=== PATIENT | female | born 1990 | race Caucasian/White ===

== ENCOUNTER 2025-07-09 08:49 | Outpatient (AMB) | payer OTHER, SELFPAY ==
--- NOTE | 2025-07-09 08:53 | HO.SPINEOV ---
Vital Signs 07/09/25 09:01 Height 5 ft 8 in Weight 140 lb BMI 21.3 Intake Visit Reasons: bulging of cervical intervertebral Intake Note: Ms. Santizo is here today c/o neck pain. Public Health Sanitarian Technician Required: No Allergies No Known Allergies Allergy (Verified 07/09/25 09:01) Physical Exam Vital Signs: BMI result Body Mass Index 21.3 Assessment & Plan Assessment & Plan (1) Cervical radiculopathy: Code(s): M54.12 - Radiculopathy, cervical region Category: Medical Plan Dear Komal, Thank you for referring Ms Santizo to our office today. She is a very nice 35-year-old female presents to the office today for evaluation of a cervical disc problem that started maybe 2 years ago. At that time she was noticing pain in the back of her neck as well as pain along her left shoulder. Does also pain in her subscapular region as well. Sometime in March of this year she is getting a massage and the symptoms acted up. She felt a burning pain down her arm as well as some tingling in her index finger. The escalation of pain and the burning feeling subsided somewhat, but she has been actively involved in physical therapy now for quite some time and the symptoms just do not seem to want to go away. Ultimately her physical therapist recommended she get an MRI and this showed foraminal narrowing at C6-7 on the left. She has been on ibuprofen, cyclobenzaprine, CBD lotion as well. She has been trying to do activity modifications at work but she does a lot of lifting and that will often aggravate the symptoms at the end of the day. She came in to see if there is anything that could be done from an intervention standpoint as she has tried most of the other conservative treatments. PMH: She is otherwise healthy and has no major systemic disease to report Social hx: She does not smoke, just occasionally uses marijuana or alcohol Medications: Cyclobenzaprine, ibuprofen, turmeric, fish oil, magnesium, multivitamin Allergies: None Physical exam: Awake alert oriented no acute distress, she has good strength in the upper extremities with the exception of the left triceps is slightly weak I would rate this as 4/5. Absent reflexes in the left triceps as well. Rest of the reflexes are normal. Imaging review: Cervical MRI done at [facility] in May of this year as well as x-rays shows some reversal of the normal lordotic curvature of the cervical spine, with what looks like disc herniation on the left C6-7 into the foramen. It is causing severe foraminal narrowing. Impression: 35-year-old female who has had on and off neck pain going into her shoulder and subscapular area now for 2 years who had a significant increase in the pain after a massage in March. The intensity of those symptoms went away, but she is still left with a baseline chronic pain and discomfort that she was experiencing before that. She clearly has severe foraminal narrowing at C6-7 on the left which would explain radicular symptoms down the arm and pain into the subscapular area as well as neck pain. It has been 2 years now and she is very frustrated with her quality of life. She has tried all the usual conservative treatments. The only other thing she could try would be a cortisone shot but I do not think that is going to do much long term care administrator other than just cover up the symptoms. Overall the quality of her disc and the height is relatively good. I think she would be a good candidate for artificial disc given her age. I am going to review this with Dr. Ferrell, to see if he agrees with me. The alternate option would be anterior cervical fusion but again because she is young I think he would lean in the direction of an artificial disc. We did briefly discuss that procedure, risks, benefits, quoting success rate at 90%. We also discussed recovery as well. Once I have a chance to finalize a plan with Dr. Ferrell I will get back to the patient. Thank you for allowing us to care for your patient. The total time spent with this visit with this patient was 45 minutes reviewing history, physical exam, cervical imaging review, and implementation of treatment plan or further diagnostic testing Logan Ferrell MD,PhD [facility] Coding Level of Care Code New Pt Level 4 (51046) Diagnoses Cervical radiculopathy M54.12
[2025-07-09 09:01] VITALS: BMI 21.3
--- OUTSIDE RECORDS SUMMARY | 2025-07-09 09:48 | XMS_ITS | Encounter Summary ---
Author Organization [facility] Address [address] [place] [phone] Phone Care Team Providers Care Chemical Processing Equipment Repairer Name Role Phone Komal Peterson CNP Primary Care Provid er Encounter Details Date Type Department Care Team (Late st Contact Info) Description 05/28/2025 Procedure Pass [facility], [facility] [address] [place], [place] [id number] Social History Tobacco Use Types Packs/Day Years Used Date Smoking Tobacco: Never Passive Smoke Exposure: Current Smokeless Tobacco: Never Passive Exposure Comments:pa rtner smokes Alcohol Use Standard Drinks/Week Comments Yes 1 (1 standard drink = 0.6 oz pure alcohol) Rare alcohol, 1-2 drinks 1-2x/month. Child or Family Care Answer Date Record ed Do you have problems with on e of the following making it difficult for you to work, study, or receive health care? No 02/27/2025 Education Answer Date Recorded Are you interested in help w ith more adult education (for example, completing high school, GED, job training, learning the [place] language, technical skills, or developing parenting skills)? No 02/27/2025 Are you concerned about learning? Not on file 02/27/2025 No 02/27/2025 Yes 02/27/2025 Food Answer Date Recorded Within the past 6 months we worried whether our food would run out before we got money to buy more. Sometimes True 025 Within the past 6 months the food we bought just didn't last and we didn't have enough money to get more. Never True 02/17 Residential Stability Answer Date Recor ded What is your housing situation today? I have tony joe 02/27/2025 How many times have you move d in the past 12 months? Zero (I did not move) 02/27/2025 Paying for Meds Answer Date Recorded Do you have trouble paying for medicines? No 02/27/2025 Paying Utility Bills Answer Date Record ed Do you have trouble paying your heating or elect ricity bill? No 02/27/2025 Transportation Answer Date Recorded Has the lack of transportati on kept you from medical appointments or from getting medications? No 02/27/2025 Unemployment Answer Date Recorded Are you currently unemployed or working on a part-time or temporary basis, and looking for work? No 02/27/2025 Digital Access Answer Date Recorded No 02/27/2025 Yes 02/27/2025 Do you have reliable internet access at home? Ye s 02/27/2025 Do you have a device (e.g., phone, tablet, computer) with a working camera? Yes 02/27/2025 Intimate Partner Violence Answer Date R ecorded Denied Basic Needs Not on file 02/27/2025 In the past 12 months have y ou been in a relationship with a person who hurts, threatens, or tries to control you? No 02/27/2025 Worried food would run out Not on file 02/27 In the past 12 months have y ou been in a relationship with a person who hurts, threatens, or tries to control you? No 02/27/2025 Comments No Sex and Gender Information Value Date Recorded Sex Assigned at Female 09/25/2024 12:44 PM EST Legal Sex Female 8:04 AM EDT Gender Identity Female 09/25/2024 12:44 PM EST Sexual Orientation Choose not to disclose 2023 12:44 PM EST documented as of this encounter Plan of Treatment Upcoming Encounters Date Type Department Care Team (Late st Contact Info) Description 03/12/2026 8:00 AM EDT Office Visit [facility] [address] [place] [address] [place] [address] Komal Peterson, MARIO [address] [facility], [address] [place] [phone] [email or web address] documented as of this encounter Visit Diagnoses Not on filedocumented in this encounter Additional Health Concerns Assessment Noted Time PHQ-2 Depression Total Score: 1 02/28/20 25 5:26 PM EDT documented as of this encounter Care Teams Chemical Processing Equipment Repairer Relationship Specialty Start Date End Date Komal Peterson CNP [address] [place] [address], [address] [place] [phone] [email or web address] PCP - General Family Medicine 02/18/24 documented as of this encounter Additional Source Comments The information contained in this document represents components of the legal health record. It is not the complete legal health record.[facility]
--- OUTSIDE RECORDS SUMMARY | 2025-07-09 09:48 | XMS_ITS | Encounter Summary ---
Author Organization [employer] Address [address] [facility] [address] [facility] [address] [place] [address] Care Team Providers Care It Trainer Name Role Phone Provider, Not In System Primary Care Provider Un available Encounter Details Date Type Department Care Team (Latest Contact Info) Description 05/24/2021 Abstract [facility] CONVERSIONS Dental, Provider, DDS Social History Tobacco Use Types Packs/Day Years Used Date Smoking Tobacco: Never Assessed Comments Unknown Sex and Gender Information Value Date Recorded Sex Assigned at Female 12/22/2022 12:22 PM EST Legal Sex Female 8:39 PM EST Gender Identity Female 09/29/2022 8:39 PM EST Sexual Orientation Bisexual 09/29/2022 8: 39 PM EST documented as of this encounter Plan of Treatment Not on file documented as of this encounter Visit Diagnoses Not on filedocumented in this encounter Care Teams It Trainer Relationship Specialty Start Date End Date Provider, Not In System PCP - General Family Medicine 02/29/24 documented as of this encounter
== END 2025-07-09 09:39 | disposition home or self-care (01) ==
PROVIDERS: PCP Nurse Practitioner Family; Referring Provider Nurse Practitioner Family; Visit Provider Physician Assistant
DX: M54.12 Radiculopathy, cervical region (principal)
CPT/HCPCS: 99204

== ENCOUNTER → 2025-07-09 08:49 | Outpatient (BNVA) | payer OTHER, SELFPAY | PROVIDERS: PCP Nurse Practitioner Family; Referring Provider Nurse Practitioner Family; Visit Provider Physician Assistant | DX: M54.12 Radiculopathy, cervical region (principal) | CPT/HCPCS: 99202 ==

== ENCOUNTER 2025-08-12 14:42 | Outpatient (AMB) | payer OTHER, SELFPAY ==
--- NOTE | 2025-08-12 15:15 | A.SPINEOV_ITS ---
Intake Visit Reasons: Discuss surgery Intake Note: Ms. Santizo is here today to Discuss Surgery Director Of Hospitality Required: No Allergies No Known Allergies Allergy (Verified 07/09/25 09:01) Assessment & Plan Assessment & Plan (1) Cervical radiculopathy: Code(s): M54.12 - Radiculopathy, cervical region Category: Medical Plan On 08/12/2025, I saw for preoperative visit Robles Santizo. She is scheduled to undergo a total disc arthropathy C6-7 for left cervical radiculopathy. We went over the films and discuss the procedure, expected postoperative course and answered all relevant questions to the patient. A total of 25 minutes were spent in his consult. Klever Ferrell MD, PhD Spine Fellowship Trained Neurosurgeon Director, [facility] Coding Level of Care Code Est Pt Level 3 (89774) Diagnoses Cervical radiculopathy M54.12
--- OUTSIDE RECORDS SUMMARY | 2025-08-12 17:17 | XMS_ITS | Encounter Summary ---
Author Organization [facility] Address [address] [place] [phone] Phone Care Team Providers Care Inventory Transcriber Name Role Phone DavidjeredKomal CNP Primary Care Provid er Encounter Details Date Type Department Care Team (Late st Contact Info) Description 05/28/2025 Procedure Pass [facility] [address] [place], [place] [phone] Social History Tobacco Use Types Packs/Day Years [...] high school, GED, job training, learning the Mauritanian language, technical skills, or developing parenting skills)? [...] EDT Office Visit [facility] [address] [place] [address] [place] [address] Komal Peterson, MARIO [address] [facility], 2nd Floor [place] [phone] [email or web address] documented as of this encounter Visit Diagnoses Not on filedocumented in this encounter Additional Health Concerns Assessment Noted Time PHQ-2 Depression Total Score: 1 02/28/20 25 5:26 PM EDT documented as of this encounter Care Teams Inventory Transcriber Relationship Specialty Start Date End Date Komal Peterson CNP [address] [place] [address], 2nd Floor [place] [phone] [email or web address] PCP - General Family Medicine 02/18/24 documented as of this encounter Additional Source Comments The information contained in this document represents components of the legal health record. It is not the complete legal health record.[facility]
--- OUTSIDE RECORDS SUMMARY | 2025-08-12 17:17 | XMS_ITS | Encounter Summary ---
Author Organization [employer] Address [address] [facility] 7t [place] [address] Care Team Providers Care Powder Operator Name Role Phone Provider, Not In System [...] on filedocumented in this encounter Care Teams Powder Operator Relationship Specialty Start Date End Date Provider, Not In System PCP - General Family Medicine 02/29/24 documented as of this encounter
--- OUTSIDE RECORDS SUMMARY | 2025-08-12 17:17 | XMS_ITS | Clinical Summary ---
Author Organization [address] [facility] Address [address] [place] [address] Phone Care Team Providers Care Range Rider Name Role Phone Komal Peterson BRADLY Primary [...] Care Team (Late st Contact Info) Description 08/14/2025 10:00 AM EDT Consult Neurosurgery [facility] [address] [facility] [address] [place] [address] Fatoumata Galvez MD [address] [place] [address] Health Maintenance Due Date Last Done Comments Cervical Cancer Screening: Pap Smear 2012 Depression Screening 11/19/2024 COVID-19 Vaccine ( season) 2025 HIV Screening 07/24/2025 Hepatitis C Screening 07/24/2025 Social Influencers of Health Screening 07/24/2025 DTaP,Tdap,and Td Vaccines (9 - Td or Tdap) 03/06/2035 03/06/2025, 07/17/2008, 07/03/2003, Additional history exists RSV Immunization Adult Patients (1 - 1-dose 75+ series) 2066 HIB Vaccines Completed 10/05/1992, 0 04/1992, 1991 IPV Vaccines Completed 08/21/1995, 0 06/1993, 1991, Additional history exists Hepatitis B Vaccines Completed 01/06/2003, 08/06/2002, 2002 Meningococcal ACWY Vaccine Completed 07/09/2007 MMR Vaccines Completed 10/05/2007, 07/08/1996 HPV Vaccines Completed 07/07/2010, 10/21, 06/17/2009 Influenza Vaccine Completed 07/24/2025, 03/06/2025 Hepatitis A Vaccines Aged Out No long er eligible based on patient's age to complete this topic Meningococcal B Vaccine Aged Out No l onger eligible based on patient's age to complete this topic Pneumococcal Vaccine: Pediatrics (0 to 5 Years) and At-Risk Patients (6 to 49 Years) Aged Out No longer eligible based on patient's age to complete this topic RSV Immunization Patients Under 20 months Aged Out No longer eligible based on patient's age to complete this topic Varicella Vaccines Aged Out No longer eligible based on patient's age to complete this topic Insurance [facility] [employer] Care Teams Range Rider Relationship Specialty Start Date End Date Komal Peterson NP [address] [place] [address], 2nd [place] [address] PCP - General Family Medicine 07/24/25
--- OUTSIDE RECORDS SUMMARY | 2025-08-12 17:17 | XMS_ITS | Encounter Summary ---
Author Organization [employer] Address [address] [facility] 7t [place] [address] Care Team Providers Care At Home Independent Call Center Agent Name Role Phone Provider, Not In System [...] on filedocumented in this encounter Care Teams At Home Independent Call Center Agent Relationship Specialty Start Date End Date Provider, Not In System PCP - General Family Medicine 02/29/24 documented as of this encounter
--- OUTSIDE RECORDS SUMMARY | 2025-08-12 17:17 | XMS_ITS | Clinical Summary ---
Author Organization [employer] Address [address] [facility] 7t [place] [address] Care Team Providers Care Grab Operator Name Role Phone Provider, Not In [...] RESULT 4TH GEN HIV AB-AG NEGATIVE (NEG) [facility] 06/28/2020 3:02 PM EDT us Historical Provider HISTORICAL/NON ORDERABLE LABS Final Result [facility] [address] from Last 3 Months or Most Recently Relevant to Health Maintenance Insurance [facility] MEDICAID STAND ADULT DENTAL - HSN FULL (MEDICAID) Care Teams Grab Operator Relationship Specialty Start Date End Date Provider, Not In System PCP - General Family Medicine 02/29/24
--- OUTSIDE RECORDS SUMMARY | 2025-08-12 17:17 | XMS_ITS | Clinical Summary ---
Author Organization [facility] Address [address] [facility] [address] [place] [phone] Phone Care Team Providers Care Kettle Room Helper Name Role Phone Komal Peterson CNP Primary [...] flow, a break, and then resumption of etl database developer flow. - Some irregularity is to be [...] if she needs a referral for a durable medical equipment technician/box printer. Bilateral shoulder pain 09/02/2022 Overview (02/18/2024): Started [...] Description 07/24/2025 1:30 PM EDT Office Visit [facility] [address] [place] [address] [place] [address] Komal Peterson CNP Preoperative cardiovascular examination (Primary Dx); Degenerative disc disease, cervical; Cervical radiculopathy; Encounter for immunization 06/16/2025 6:55 AM EDT - 06/16/2025 11:59 PM EDT Hospital Encounter [address] [address] Komal Peterson CNP Discharge Disposition: Home or Self Care 05/28/2025 Procedure Pass [address] [address] from Last 3 Months Immunizations Immunization Administration [...] high school, GED, job training, learning the [place] language, technical skills, or developing parenting skills)? [...] EDT Office Visit [facility] [address] [place] [address] [place] [address] Komal Peterson, MARIO [address] [facility], 2nd Floor [place] [phone] [email or web address] Health Maintenance Due Date [...] clinician's provided indication for this examination in [facility]: * Cervical radiculopathy, no red flags; * [...] clinician's provided indication for this examination in [facility]: *Cervical radiculopathy, no red flags; * Neck [...] on theleft C7 nerve root. Komal Peterson BUYING AGENT IMG MR XSPECIALTY Fi nal Result * PAP SMEAR FOR RESULT ENTRY ONLY (01/30/2025 9:42 AM EDT) Pap smear NILM and HPV neg EXTERNAL NON-INTERFACE D REF LAB 01/30/2025 9:42 AM EDT Result [facility] Historical Provider MD HEALTH MAINTENANCE Edited Result - Final EXTERNAL NON-INTERFACED REF LAB * OUTSIDE HIV TEST (05/06/2021 10:10 AM EDT) HIV - External Neg Result [facility] Historical Provider MD LAB BLOOD ORDERABLES Marycarmen l Result * Outside Hepatitis C Virus Screening (06/28/2020 3:01 PM EDT) Hepatitis C Screening - External Neg Historical Provider MD LAB BLOOD ORDERABLES Marycarmen l Result from Last 3 Months or Most Recently Relevant to Health Maintenance [facility] [address] [place] [address] [employer] [address] [place] [address] [address] [place] [address] [facility] DIRECT [facility] DIRECT [facility] [employer] DIRECT Care Teams Kettle Room Helper Relationship Specialty Start Date End Date Komal Peterson, MARIO [address] [place] [address], 2nd [place] [address] [email or web address] PCP - General Family Medicine 02/18/24 Additional Source Comments The information contained in this document represents components of the legal health record. It is not the complete legal health record.[facility]
== END 2025-08-12 15:46 | disposition home or self-care (01) ==
LOC: HO.HNS 14:42
PROVIDERS: PCP Nurse Practitioner Family; Visit Provider Neurological Surgery
DX: M54.12 Radiculopathy, cervical region (principal)
CPT/HCPCS: 99213

== ENCOUNTER → 2025-08-12 14:42 | Outpatient (BNVA) | payer OTHER, SELFPAY | PROVIDERS: PCP Nurse Practitioner Family; Visit Provider Neurological Surgery | DX: M54.12 Radiculopathy, cervical region (principal) | CPT/HCPCS: 99212 ==

== ENCOUNTER 2025-08-19 06:01 | Day surgery (SDC) | payer OTHER, SELFPAY ==
[2025-08-07 09:22] VITALS: BMI 22.0
--- OUTSIDE RECORDS SUMMARY | 2025-08-07 10:47 | XMS_ITS | Clinical Summary ---
Author Organization [facility] Address [address] [employer] [facility] [address] [place] [phone] Phone Care Team Providers Care Production Technician Name Role Phone Komal Peterson CNP Primary Care Provid er Allergies No known active allergies Medications cholecalciferol (VITAMIN D3) 2,000 unit tablet Take 2,000 Units by mouth daily. Active MULTIVITAMIN ORAL Take 1 tablet by mouth daily. Active tretinoin (RETIN-A) 0.1 % creamIndication s:Milia Apply topically nightly at bedtime. 45 g 4 Active cyclobenzaprine (FLEXERIL) 5 MG tabletIndicatio ns:Muscle spasms of neck Take 1 tablet (5 mg total) by mouth 3 (three) times a day as needed (for muscle spasm/tightnes s). 15 tablet 2 5 Active Active Problems Problem Noted Date Diagnosed Date Dysmenorrhea 07/24/2025 Degenerative disc disease, cervical 04/10/2025 Ganglion cyst of left foot 03/06/2025 Assessment & Plan (03/06/2025 6:16 PM EDT): The cyst on the side of the dorsal left foot is mobile under the skin and behaves like a typical ganglion cyst. - Advised to wear open-toed shoes on off days to reduce pressure and use a corn pad for cushioning if bothersome. - If the cyst persists, enlarges, or exhibits unusual behavior, an x-ray or soft tissue ultrasound can be performed to assess its contents. A surgical or orthopedic referral may also be considered for possible cyst aspiration or excision. Seborrheic dermatitis of scalp 03/06/2025 Assessment & Plan (03/06/2025 6:10 PM EDT): The patient reports dry skin around her ears and on her scalp, which is likely seborrheic dermatitis. - Continue Head and Shoulders shampoo on her scalp and ears as needed. Muscle spasms of neck 03/06/2025 Assessment & Plan (03/06/2025 6:11 PM EDT): The patient experiences chronic neck and shoulder pain, which sometimes interrupts sleep. - A prescription for cyclobenzaprine (Flexeril) will be provided for use as needed for muscle spasm tightness. Risks/benefits/side effects reviewed, aware not to drive or combine with alcohol. Menstrual irregularity 03/06/2025 Assessment & Plan (03/06/2025 6:15 PM EDT): The patient recently had her IUD removed and experienced her first period in 5 years, characterized by an initial heavy flow, a break, and then resumption of decator operator flow. - Some irregularity is to be expected over the coming months and is likely to become more predictable. - Advised to continue using condoms for control and to track her cycle for better understanding of her fertility window. Cyst near tailbone 03/06/2025 Assessment & Plan (03/06/2025 6:16 PM EDT): The patient has a history of a (?pilonidal) cyst that flares up occasionally. - Advised to monitor the cyst and manage flare-ups with hot soaks. - If the cyst becomes infected or inflamed, treatment should be sought, and once inflammation subsides, consult a surgeon for potential removal. Vitamin D deficiency 02/18/2024 Assessment & Plan (03/06/2025 6:14 PM EDT): The patient is concerned about potential vitamin D deficiency due to inconsistent supplement intake and limited sun exposure. - Blood work will be ordered to assess vitamin D levels. Assessment & Plan (02/18/2024 8:13 AM EDT): Takes a vitamin d supplement seasonally. Cervical radiculopathy 02/18/2024 Assessment & Plan (02/18/2024 9:38 AM EDT): Neck and upper back/shoulder pain with occasional shooting pain down her arms occurring around every few weeks to once/month. Usually manages with IcyHot patch, rest and ice. No numbness or tingling. Will obtain c-spine x-ray to establish baseline and assess disc spacing. PT referral also sent today. Dicussed next steps if sx worsening or not improving with PT including sports medicine referral (PSS). Red flags discussed. F/u PRN. Non-celiac gluten sensitivity 02/18/2024 Assessment & Plan (03/06/2025 6:19 PM EDT): Previous testing neg for celiac, records not available. Low overall risk for malabsorption but she is interested in investigating her nutritional status, will check B12 and CBC. Assessment & Plan (02/18/2024 9:32 AM EDT): Has noticed a sensitivity to gluten, has considered going gluten free. Believes she has been tested for Celiac, declined repeat testing today. 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 Bilateral shoulder pain 09/02/2022 Overview (02/18/2024): Started with a muscle injury while moving. I have had recurring pinched shoulder and neck nerves since (every other month it seems). 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 Looking to set up a physical or occupational therapist in the area. Assessment & Plan (03/06/2025 6:13 PM EDT): Chronic/recurrent neck and shoulder pain, better with reducing her workload but continues with a very physical job. - Participated in physical therapy last year with benefit, continues with HEP. - She has also tried acupuncture and massage in the past re: this issue. - Flares managed with OTC pain relief and heat or ice packs. Assessment & Plan (02/18/2024 9:28 AM EDT): Strained muscles in the middle of her back and neck, radiates down her back and into either shoulder. She is really overworking her upper back. Has been stretching and taking OTC pain meds, applying ice packs. Has gotten some acupuncture and massage. Interested in working with physical therapy. Neck and shoulders very stiff on exam. Referral sent for PT. History of iron deficiency anemia 10/16/2018 Assessment & Plan (03/06/2025 6:17 PM EDT): Hx of iron deficiency also with history of heavy periods. Recently had IUD removed, has only had one cycle so far but it was heavier for a few days. - Monitor for anemia/iron deficiency recurrence. Assessment & Plan (02/18/2024 9:28 AM EDT): Hx of iron deficiency also with history of heavy periods, now in good control with hormonal IUD. Declined updated labs today. Resolved Problems Problem Noted Date Diagnosed Date Resolved Date IUD (intrauterine device) in place 02/18/2024 03/06/2025 Assessment & Plan (02/18/2024 9:21 AM EDT): Karla IUD in place, inserted a few years ago through [facility]. Content with this method of contraception. Will request records. Marijuana user 02/18/2024 03/06/2025 Assessment & Plan (02/18/2024 9:33 AM EDT): Occasionally smokes MJ or takes edibles ~1-2x/week. Use is recreational and also helps with sleep or relaxation. Denies any experience of dependence or withdrawal. Confirms she uses the dispensaries/always obtains her supply from a safe place. Does not feel this causes her any problems. Chest wall pain 02/18/2024 03/06/2025 Assessment & Plan (02/18/2024 9:32 AM EDT): Tenderness below both arms and in the upper chest, worse on the right. Likely also related to frequent heavy lifting, upper back, neck and shoulder pain. No breast tenderness on exam. Functional constipation 02/18/202402/17 Assessment & Plan (02/18/2024 9:34 AM EDT): Feeling a little constipated at present, didn't have a BM yesterday. Reports this happens occasionally. Does take OTC stool softeners/laxatives as needed. Recommended senna as needed. Also discussed the importance of good hydration and consistent fiber intake. Milia 02/01/2024 03/06/2025 Overview (02/18/2024): Appearance of white dot under white eye over the last few weeks. Could be a minor fungal growth. Assessment & Plan (02/18/2024 9:26 AM EDT): New onset white dot below the right eye c/w milia. Discussed benign finding. May be self-limiting, could also be removed through dermatology. Since this is fairly isolated, may also respond to topical retinoid, suggested OTC Differin or Retin- A, rx sent to explore insurance coverage. Risks/benefits/side effects reviewed including sun sensitivity. F/u PRN. Rash of hand 01/18/2024 03/06/2025 Overview (02/18/2024): Had for a few weeks on my right hand from repeated dish washing. Open to treatment suggestions. Assessment & Plan (02/18/2024 9:24 AM EDT): Right hand rash between thumb and first finger, pt reports often also affecting the knuckles. Worse with hands in water. Improved with regular OTC non-medicated moisturizer use. No known hx of eczema. Hasn't tried hydrocortisone. Likely contact dermatitis related to hot water and soap, eczema also possible. Should avoid potential triggers such as: cold or dry environments, rapid temperature changes, exposure to soaps/detergents/cosmetics/wool or synthetic fibers, dust or smoke, and sweating. Recommended wearing gloves if possible while washing dishes. She will continue regular use of non-medicated emollients (such as Eucerin or Cetaphil) and/or ointments (such as Aquaphor or Vaseline). Recommend use of OTC Hydrocortisone 1% as needed for flares. Should follow-up if ineffective/ no improvement after 2 weeks. Encounters Date Type Department Care Team Description 07/24/2025 1:30 PM EDT Office Visit [facility] [address] [place] [address] [place] [address] Komal Peterson CNP Preoperative cardiovascular examination (Primary Dx); Degenerative disc disease, cervical; Cervical radiculopathy; Encounter for immunization 06/16/2025 6:55 AM EDT - 06/16/2025 11:59 PM EDT Hospital Encounter [address] [address] Komal Peterson CNP Discharge Disposition: Home or Self Care 05/28/2025 Procedure Pass [address] [id number] from Last 3 Months Immunizations Immunization Administration Dates Next Due DTP 08/21/1995, 3,1991,10/23,1991 HPV, unspecified formulation 07/07/2010,11/17/20 09,06/17/2009 Hepatitis B, unspecified formulation 01/06/2003, 08/06/2002,2002 Hib, unspecified formulation 10/05/1992,12/25/18 92,1991 INFLUENZA, SPLIT VIRUS, TRIVALENT PF 07/24/2025, 03/06/2025 MMR 10/05/2007,07/08/1996 Meningococcal ACWY, unspecif ied formulation 07/09/2007 PPD Test 03/29/1992 Polio, Unspecified Formulation 5,12/27/1992,1991,09/08 Td, unspecified formulation 07/03/2003 Tdap 03/06/2025,07/17/2008 Family History Medical History Relation Comments Hypertension Father Heart disease Paternal Grandmother Breast cancer Neg Hx Colon cancer Neg Hx Ovarian cancer Neg Hx Relation Status Comments Father Maternal Grandfather Paternal Grandmother Social History Tobacco Use Types Packs/Day Years Used Date Smoking Tobacco: Never Passive Smoke Exposure: Current Smokeless Tobacco: Never Tobacco Cessation:Counseling Given: Not Answered Passive Exposure Comments:partner smokes Alcohol Use Standard Drinks/Week Comments Yes [...] high school, GED, job training, learning the German language, technical skills, or developing parenting skills)? [...] not to disclose 2023 12:44 PM EST Last Filed Vital Signs Vital Sign Reading Time Taken Comments Blood Pressure 102/66 07/24/2025 1:34 PM EDT Pulse 77 07/24/2025 1:34 PM EDT Temperature 36.8 C (98.2 F) 02/18/2024 7:57 AM EDT Respiratory Rate - - Oxygen Saturation 98% 07/24/2025 1:34 PM EDT Inhaled Oxygen Concentration - - Weight 68.2 kg (150 lb 6.4 oz) 07/24/2025 1:34 P M EDT Height 170.2 cm (5' 7 ) 06/11/2025 3:54 PM EDT 3 Body Mass Index 23.56 06/11/2025 3:54 PM EDT Plan of Treatment Upcoming Encounters Date Type Department Care Team (Late st Contact Info) Description 03/12/2026 8:00 AM EDT Office Visit [facility] [address] [place] [address] [place] [address] Komal Peterson, MARIO [address] [facility], [address]nd [address] [place] [id number] [email or web address] Health Maintenance Due Date Last Done Comments COVID-19 VACCINE (2023-2 5 season) 2025 DEPRESSION SCREENING 02/27/2026 02/27/2025 PAP SMEAR 01/31/2028 01/30/2025, 08/16/2020 Adult Td,Tdap Booster 03/06/2035 03/06/2025 , 07/17/2008, 07/03/2003 HIB VACCINES Completed 10/05/1992, 1991, 1991 MENINGOCOCCAL VACCINES (ACWY) Completed 07/09/2007 HEPATITIS C SCREENING Completed 06/28/2020 HIV ONE-TIME SCREENING (18-6 5 YEARS) Completed 05/06/2021, 06/28/2020 SMOKING STATUS SCREENING (On ce After 26 Yrs) Completed 03/06/2025 INFLUENZA VACCINE Completed 07/24/2025, 03/06/2025 HEPATITIS A VACCINES Aged Out No long er eligible based on patient's age to complete this topic MENINGOCOCCAL VACCINES (B) Aged Out N o longer eligible based on patient's age to complete this topic PNEUMOCOCCAL VACCINES (0-49 years) Aged Out No longer eligible b ased on patient's age to complete this topic Medical Devices Not on file Procedures Procedure Name Priority Date/Time Associated Diagnosis Comments MRI CERVICAL SPINE (NEURO) FOCUS WITHOUT CONTRAST Urgent/patient waiting 06/16/2025 8:20 AM EDT Degenerative disc disease, cervical Cervical radiculopathy Neck and shoulder pain HM PAP SMEAR FOR RESULT ENTRY ONLY Routine 01/30/2025 9:42 AM EDT OUTSIDE HIV Routine 05/06/2021 10:10 AM EDT OUTSIDE HEPATITIS C VIRUS SCREENING Routine 06/28/2020 3:01 PM EDT from Last 3 Months or Most Recently Relevant to Health Maintenance Results * MRI CERVICAL SPINE (NEURO) FOCUS WITHOUT CONTRAST (06/16/2025 8:20 AM EDT) Anatomical Region Laterality Modality C-spine Magnetic Resonan ce 06/16/2025 8:22 AM EDT Impressions 06/16/2025 8:37 AM EDT Prominent left foraminal disc protrusion at C6-C7 likely impinges on the left C7 nerve root. Narrative 06/16/2025 8:37 AM EDT MRI CERVICAL SPINE (NEURO) FOCUS WITHOUT CONTRAST Referring clinician's provided indication for this examination in [facility]: * Cervical radiculopathy, no red flags; * Neck pain, chronic, degenerative changes on xray; Persistent radiating pain into the shoulders & left arm, persistent despite supportive measures and PT >3 months TECHNIQUE: MRI CERVICAL SPINE (NEURO) FOCUS WITHOUT CONTRAST Multi-sequence, multi-planar MRI of the cervical spine was performed without intravenous contrast. COMPARISON: None. FINDINGS: CERVICAL SPINE: Alignment and Vertebrae: Mild reversal of cervical lordosis. No compression fracture. Marrow: No bone marrow replacing lesion. Discs and Endplates: Normal intervertebral disc heights and signal. Spinal Cord: No spinal cord signal abnormality. Soft Tissue: Normal. No prevertebral edema. Findings by level: C2-C3: Negative C3-C4: Negative C4-C5: Negative C5-C6: Negative C6-C7: There is a prominent left foraminal disc protrusion (with mild underlying osteophytosis) resulting in severe foraminal stenosis and likely impingement of the left C7 nerve root. C7-T1: Negative Procedure Note Camilo Rascon MD - 06/16/2025 MRI CERVICAL SPINE (NEURO) FOCUS WITHOUT CONTRAST Referring clinician's provided indication for this examination in [facility]: *Cervical radiculopathy, no red flags; * Neck pain, chronic, degenerativechanges on xray; Persistent radiating pain into the shoulders & left arm,persistent despite supportive measures and PT >3 months TECHNIQUE: MRI CERVICAL SPINE (NEURO) FOCUS WITHOUT CONTRAST Multi-sequence, multi-planar MRI of the cervical spine was performedwithout intravenous contrast. COMPARISON: None. FINDINGS: CERVICAL SPINE: Alignment and Vertebrae: Mild reversal of cervical lordosis. Nocompression fracture. Marrow: No bone marrow replacing lesion. Discs and Endplates: Normal intervertebral disc heights and signal. Spinal Cord: No spinal cord signal abnormality. Soft Tissue: Normal. No prevertebral edema. Findings by level: C2-C3: Negative C3-C4: Negative C4-C5: Negative C5-C6: Negative C6-C7: There is a prominent left foraminal disc protrusion (with mildunderlying osteophytosis) resulting in severe foraminal stenosis andlikely impingement of the left C7 nerve root. C7-T1: Negative IMPRESSION: Prominent left foraminal disc protrusion at C6-C7 likely impinges on theleft C7 nerve root. Komal Peterson [employer] MR XSPECIALTY Fi nal Result * PAP SMEAR FOR RESULT ENTRY ONLY (01/30/2025 9:42 AM EDT) Pap smear NILM and HPV neg EXTERNAL NON-INTERFACE D REF LAB 01/30/2025 9:42 AM EDT Result [facility] Historical Provider MD HEALTH MAINTENANCE Edited Result - Final EXTERNAL NON-INTERFACED REF LAB * OUTSIDE HIV TEST (05/06/2021 10:10 AM EDT) HIV - External Neg Result [facility] Historical Provider MD LAB BLOOD ORDERABLES Marycarmen l Result * Outside Hepatitis C Virus Screening (06/28/2020 3:01 PM EDT) Hepatitis C Screening - External Neg Historical Provider MD LAB BLOOD ORDERABLES Marycarmen l Result from Last 3 Months or Most Recently Relevant to Health Maintenance [facility] [address] [place] [address] [employer] [address] [place] [address] [place] [address] [employer] [facility] DIRECT [facility] [employer] DIRECT Care Teams Production Technician Relationship Specialty Start Date End Date Komal Peterson, MARIO [address] [place] [address], [address] [place] [address] [email or web address] PCP - General Family Medicine 02/18/24 Additional Source Comments The information contained in this document represents components of the legal health record. It is not the complete legal health record.[facility]
--- OUTSIDE RECORDS SUMMARY | 2025-08-07 10:47 | XMS_ITS | Encounter Summary ---
Author Organization [facility] Address [address] [facility] [address] [place] [address] Care Team Providers Care Multicultural Internship Name Role Phone Provider, Not In System [...] on filedocumented in this encounter Care Teams Multicultural Internship Relationship Specialty Start Date End Date Provider, Not In System PCP - General Family Medicine 02/29/24 documented as of this encounter
--- OUTSIDE RECORDS SUMMARY | 2025-08-07 10:47 | XMS_ITS | Clinical Summary ---
Author Organization [address] [facility] Address [address] [place] [address] Phone Care Team Providers Care Volcanologist Name Role Phone Komal Peterson BRADLY Primary Care Provide r Social History Tobacco Use Types Packs/Day Years Used Date Smoking Tobacco: Never Assessed Comments Unknown Sex and Gender Information Value Date Recorded Sex Assigned at Not on file Legal Sex Female 4:16 PM EDT Gender Identity Not on file Sexual Orientation Not on file Plan of Treatment Upcoming Encounters Date Type Department Care Team ([facility] st Contact Info) Description 08/14/2025 10:00 AM EDT Consult Neurosurgery [facility] [address] [facility] [address] [place] [address] Fatoumata Galvez MD [address] [place], [place] [id number] Health Maintenance Due Date Last Done Comments DTaP,Tdap,and Td Vaccines (1 - Tdap) 2010 Hepatitis B Vaccines (1 of 3 - 19+ 3-dose series) 2010 Cervical Cancer Screening: P ap Smear 2012 Depression Screening 11/19/2024 COVID-19 Vaccine (1 - 2023-2 5 season) 2025 Influenza Vaccine (#1) 2025 HIV Screening 07/24/2025 Hepatitis C Screening 07/24/2025 Social Influencers of Health Screening 07/24/2025 RSV Immunization Adult Patie nts (1 - 1-dose 75+ series) 2066 HIB Vaccines Aged Out No longer eligi ble based on patient's age to complete this topic HPV Vaccines Aged Out No longer eligi ble based on patient's age to complete this topic Hepatitis A Vaccines Aged Out No long er eligible based on patient's age to complete this topic IPV Vaccines Aged Out No longer eligi ble based on patient's age to complete this topic MMR Vaccines Aged Out No longer eligi ble based on patient's age to complete this topic Meningococcal ACWY Vaccine Aged Out N o longer eligible based on patient's age to complete this topic Meningococcal B Vaccine Aged Out No l onger eligible based on patient's age to complete this topic Pneumococcal Vaccine: Pediat rics (0 to 5 Years) and At-Risk Patients (6 to 49 Years) Aged Out No longer eligible b ased on patient's age to complete this topic RSV Immunization Patients Un geovanni 20 months Aged Out No longer eligible b ased on patient's age to complete this topic Varicella Vaccines Aged Out No longer eligible based on patient's age to complete this topic [place] [place] [address] [employer] Care Teams Volcanologist Relationship Specialty Start Date End Date Komal Peterson NP [address] [place] [address], 2[address] [place] [address] PCP - General Family Medicine 07/24/25
--- OUTSIDE RECORDS SUMMARY | 2025-08-07 10:47 | XMS_ITS | Clinical Summary ---
Author Organization [employer] Address [address] [facility] 7t [place] [address] Care Team Providers Care Paid Search Manager Name Role Phone Provider, Not In System Primary Care Provider Un available Allergies No known active allergies Medications cholecalciferol (Vitamin D-3) 50 MCG (1999) tablet Take by mouth in the morning. Active UNABLE TO FIND Med Name: Activ e Active Problems Problem Noted Date Diagnosed Date Anemia 10/16/2018 Social History Tobacco Use Types Packs/Day Years Used Date Smoking Tobacco: Every Day Cigarettes Smokeless Tobacco: Never Tobacco Cessation:Ready to Q uit: Not Asked; Counseling Given: Not Answered Comments:1-2 cigarettes a week Alcohol Use Standard Drinks/Week Comments Yes 0 (1 standard drink = 0.6 oz pur e alcohol) 1-2 drinks a week Comments Unknown Sex and Gender Information Value Date Recorded Sex Assigned at Female 12/22/2022 12:22 PM EST Legal Sex Female 8:39 PM EST Gender Identity Female 09/29/2022 8:39 PM EST Sexual Orientation Bisexual 09/29/2022 8: 39 PM EST Last Filed Vital Signs Vital Sign Reading Time Taken Comments Blood Pressure 118/62 06/23/2022 8:19 AM EDT Pulse 68 06/23/2022 8:19 AM EDT Temperature - - Respiratory Rate - - Oxygen Saturation 98% 06/23/2022 8:19 AM EDT Inhaled Oxygen Concentration - - Weight 63 kg (139 lb) 06/23/2022 8:19 AM EDT Height 172 cm (5' 7.7 ) 06/23/2022 8:19 AM EDT Body Mass Index 21.32 06/23/2022 8:19 AM EDT Plan of Treatment Health Maintenance Due Date Last Done Comments Depression Screening 1991 SDOH Screening 1991 Disability Screening 1991 Alcohol/Substance Use Screening 2003 Family Planning (PISQ) 2006 Hepatitis C Screening 2009 Pneumococcal Vaccine: Pediatrics (0 to 5 Years) and At-Risk Patients (6 to 49) Years (1 of 2 - PCV) 2010 Pap Smear 2012 Cervical Cancer Screening 2021 HPV/Cotest 2021 Dental Oral Exam 11/25/2021 05/24/2021, 10/23/2018 Dental Prophylaxis 12/15/2022 06/13/2022, 0 05/25/2021, 11/07/2018 Dental X-Ray: Bitewings 06/14/2023 06/13/20 22, 05/24/2021, 10/23/2018 Tobacco Screening 12/19/2023 12/19/2022 Dental X-Ray: Full Mouth 06/14/2025 06/13/2022, 03/2018 COVID-19 Vaccine (1 - season) 2025 Influenza Vaccine (#1) 2025 12/18/2019 DTaP/Tdap/Td Vaccines (8 - Td or Tdap) 06/23/2032 06/23/2022, 07/17/2008, 07/03/2003, Additional history exists Zoster Vaccines (1 of 2) 2041 RSV Patients and Patients Aged 60 years or older (1 - 1-dose 75+ series) 2066 HIB Vaccines Completed 10/05/1992, 04/1992, 1991 IPV Vaccines Completed 08/21/1995, 0 06/1993, 1991, Additional history exists Hepatitis B Vaccines Completed 01/06/2003, 01/06/2003, 08/06/2002, Additional history exists Meningococcal Vaccine Completed 07/09/2007 HPV Vaccines Completed 07/07/2010, 06/19, 11/17/2009, Additional history exists HIV Screening Completed 06/28/2020, 12/18/2019 Hepatitis A Vaccines Aged Out No long er eligible based on patient's age to complete this topic Meningococcal B Vaccine Aged Out No l onger eligible based on patient's age to complete this topic RSV under 20 months Aged Out No longe r eligible based on patient's age to complete this topic Rotavirus Vaccines Aged Out No longer eligible based on patient's age to complete this topic Procedures Procedure Name Priority Date/Time Associated Diagnosis Comments PROPHYLAXIS - ADULT Routine 06/13/2022 1 2:00 AM EDT INTRAORAL - COMPLETE SERIES OF RADIOGRAPHIC IMAGES Routine 06/13/2022 12:00 AM EDT PERIODIC ORAL EVALUATION - ESTABLISHED PATIENT Routine 05/24/2021 12:00 AM EDT ZH[place] HISTORICAL HIV AB-AG W/RFLX TO HIV QNT Routine 06/28/2020 3:02 PM EDT from Last 3 Months or Most Recently Relevant to Health Maintenance Results * HIV AB-AG W/RFLX TO HIV QNT (06/28/2020 3:02 PM EDT) RESULT 4TH GEN HIV AB-AG NEGATIVE (NEG) [facility] 06/28/2020 3:02 PM EDT us Historical Provider HISTORICAL/NON ORDERABLE LABS Final Result [facility] [address] from Last 3 Months or Most Recently Relevant to Health Maintenance Insurance [facility]AL-[facility] MEDICAID STAND ADULT DENTAL - HSN FULL (MEDICAID) Care Teams Paid Search Manager Relationship Specialty Start Date End Date Provider, Not In System PCP - General Family Medicine 02/29/24
--- OUTSIDE RECORDS SUMMARY | 2025-08-07 10:47 | XMS_ITS | Encounter Summary ---
Author Organization [facility] Address [address] [place] [phone] Phone Care Team Providers Care Senior Analysis Specialist Name Role Phone DavidjeredKomal CNP Primary Care Provid er Encounter Details Date Type Department Care Team (Late st Contact Info) Description 05/28/2025 Procedure Pass [facility] [address] [place], [place] [id number] Social History Tobacco Use Types Packs/Day Years [...] high school, GED, job training, learning the Faroese language, technical skills, or developing parenting skills)? [...] EDT Office Visit [facility] [address] [place] [address] [place] [address] Komal Peterson, MARIO [address] [facility], 2nd Floor [place] [phone] [email or web address] documented as of this encounter Visit Diagnoses Not on filedocumented in this encounter Additional Health Concerns Assessment Noted Time PHQ-2 Depression Total Score: 1 02/28/20 25 5:26 PM EDT documented as of this encounter Care Teams Senior Analysis Specialist Relationship Specialty Start Date End Date Komal Peterson CNP [address] [place] [address], 2nd Floor [place] [phone] [email or web address] PCP - General Family Medicine 02/18/24 documented as of this encounter Additional Source Comments The information contained in this document represents components of the legal health record. It is not the complete legal health record.[facility]
--- OUTSIDE RECORDS SUMMARY | 2025-08-07 10:47 | XMS_ITS | Encounter Summary ---
Author Organization [employer] Address [address] [facility] 7t [place] [address] Care Team Providers Care Director Records Management Name Role Phone Provider, Not In System Primary Care Provider Un available Encounter Details Date Type Department Care Team (Latest Contact Info) Description 06/13/2022 Abstract [facility] Dental, Provider, DDS Social [...] on filedocumented in this encounter Care Teams Director Records Management Relationship Specialty Start Date End Date Provider, Not In System PCP - General Family Medicine 02/29/24 documented as of this encounter
[2025-08-19] VITALS (8 sets, daily range): BP systolic 106–126; BP diastolic 68–81; PULSE 60–78; RESP 12–18; TEMP 36.1–36.9; O2SAT 97–100; BMI 22.7
--- NOTE | ~2025-08-19 | FL_ITS ---
EXAMINATION: FL GUIDANCE ONLY HISTORY: C6-7 DISC ARTH COMPARISON: None available. TECHNIQUE: Fluoroscopy time: 9.9 seconds. Cumulative Dose: 1.0300 mGy. DAP: 0.3707 Gycm2 Images: 4. FINDINGS: Fluoroscopic spot films of the cervical spine demonstrate placement of a disc prosthesis at C6-7. FL/FL guidance in OR IMPRESSION: Fluoroscopy during procedure. Please see procedure report for additional information. Electronically signed by: Woodrow Cowan MD 08/19/2025 08:55 AM EDT
[2025-08-19] MEDS: Lactated Ringers 1,000 ML 100 ML IVCONT (06:29)
[2025-08-19 06:40] LABS: UPreg QC Valid YES
--- NOTE | 2025-08-19 07:01 | MHC.SHP ---
Pre-Procedural Eval Section A - 24 Hr Update-Section A only Date of Service: 08/19/25 Section B - Complete if H&P > 30 days Chief Complaint: Radiculopathy, cervical region Allergies: Allergies Allergy/AdvReac Type Severity Reaction Status Date / Time No Known Allergies Allergy Verified 08/19/25 06:10 Review of Systems Sugical H&P ROS: Negative: Constitution, Cardiovascular, Respiratory, Neurological, Psychiatric, Hem-Onc, Allergic/Immunologic, Gastrointestinal, Genitourinary, Musculoskeletal, Integumentary, Endocrine and Eyes/Ears/Nose/Throat Exam Surgical H&P Exam: Not Evaluated: HEENT, Not Evaluated: Heart, Not Evaluated: Lungs, Not Evaluated: Extremities, Not Evaluated: Abdomen, Not Evaluated: Skin and Not Evaluated: Neurological Exam Comment: THE PATIENT IS AWAKE, ALERT, NO ACUTE DISTRESS. PROPOSED SURGICAL INCISION SITE IS CLEAN, DRY, WITH NO SIGNS OF RECENT TRAUMA. Plan Diagnosis/Plan: Unchanged I have reviewed the history and physical and performed a pertinent physical examination on my patient. No changes have occurred unless specified. Plan remains the same, C6-7 total disc arthroplasty. Time Spent With Patient Time: Total time managing care of this patient today ___7 minutes.
--- NOTE | 2025-08-19 07:19 | HO.ANESPROP2 ---
Documented by User: Nava Clark NP 08/07/25 10:47 HPI - Anesthesia Eval Consult details Narrative: 35 yr old female for C6-7 Total Disc Arthroplasty PMFSH Active Problems Active Problems: All Active Problems (Updated 08/07/25 @ 09:14 by Kandis Portillo RN) Cervical radiculopathy (Acute) Past Medical History Medical History Arthritis Back pain Habitual snoring Cyst near tailbone Non-celiac gluten sensitivity Seborrheic dermatitis of scalp Anemia Shoulder pain, bilateral Menstrual irregularity Muscle spasms of neck Ganglion cyst Vitamin D deficiency Surgical History Surgical History Hx of wisdom tooth extraction Social History Social History Are you a primary intensive care anaesthetist to a significant other at home: No Do you presently have visiting nurse or other home services: No Patient Tobacco Use Status: Never used Tobacco Use of substances other than those prescribed or required for medical reasons: Yes Substance Use Frequency: Occasionally Have you been hit, kicked, punched, or otherwise hurt by someone within the past year? If so, by whom?: No Are you DNR?: No Advance Directives: No Advance Directives Information Provided: Yes Advance Directives on File: No Patient : No : No Poor oral hygiene: No Meds Allergies Allergy/AdvReac Type Severity Reaction Status Date / Time No Known Allergies Allergy Verified 08/19/25 06:10 Home Medications ?Medication ?Instructions ?Recorded ?Confirmed ?Last Taken ?Type cyclobenzaprine 5 mg tablet 5 mg PO TID PRN Muscle Spasm 08/06/25 08/19/25 Unknown History ibuprofen 200 mg tablet 400 mg PO Q6H PRN Pain 08/07/25 08/19/25 08/12/25 History Exam Height,Weight and Vital Signs: Height 5 ft 8 in Weight 65.771 kg Documented by User: Michelle Bhardwaj DO 08/19/25 07:20 [facility] Past Medical History Medical History Arthritis Back pain Habitual snoring Cyst near tailbone Non-celiac gluten sensitivity Seborrheic dermatitis of scalp Anemia Shoulder pain, bilateral Menstrual irregularity Muscle spasms of neck Ganglion cyst Vitamin D deficiency Family History Family history of problems with anesthesia: No Surgical History Surgical History Hx of wisdom tooth extraction History of Problems with Anesthesia: No Social History Social History Are you a primary intensive care anaesthetist to a significant other at home: No Do you presently have visiting nurse or other home services: No Patient Tobacco Use Status: Never used Tobacco Use of substances other than those prescribed or required for medical reasons: Yes Substance Use Frequency: Occasionally Have you been hit, kicked, punched, or otherwise hurt by someone within the past year? If so, by whom?: No Are you DNR?: No Advance Directives: No Advance Directives Information Provided: Yes Advance Directives on File: No Patient : No : No Poor oral hygiene: No Meds Allergies Allergy/AdvReac Type Severity Reaction Status Date / Time No Known Allergies Allergy Verified 08/19/25 06:10 Home Medications ?Medication ?Instructions ?Recorded ?Confirmed ?Last Taken ?Type cyclobenzaprine 5 mg tablet 5 mg PO TID PRN Muscle Spasm 08/06/25 08/19/25 Unknown History ibuprofen 200 mg tablet 400 mg PO Q6H PRN Pain 08/07/25 08/19/25 08/12/25 History Exam Exam Date and Time: 08/19/25 0715 Height,Weight and Vital Signs: Height 5 ft 8 in Weight 65.771 kg Vital Signs Temperature 98.4 F 08/19/25 06:19 Pulse Rate 73 08/19/25 06:19 Respiratory Rate 16 08/19/25 06:19 Blood Pressure 126/78 08/19/25 06:19 Pulse Oximetry 100 08/19/25 06:19 Oxygen Delivery Method Room Air 08/19/25 06:19 Temperature 98.4 F 08/19/25 06:19 Pulse Rate 73 08/19/25 06:19 Respiratory Rate 16 08/19/25 06:19 Blood Pressure 126/78 08/19/25 06:19 Pulse Oximetry 100 10/01/25 06:19 Oxygen Delivery Method Room Air 08/19/25 06:19 Airway Mallampati Class: II TM Dist: <=3cm Neck ROM: Limited Loose/Missing/Broken Teeth: No (patient denies any loose or broken teeth) Heart: S1S2 Lungs: CTAB Assessment and Plan Assessment Anesthesia Assessment: Anesthesia Plan Discussed and Chart Reviewed Final Anesthetic Review Family History of Problems with Anesthesia: No History of Problems with Anesthesia: No NPO: Yes ASA Class: II Final Preanesthetic Review: No Changes in Pt Med Stat, Meds/Allgs Chart Reviewed, Consent Obtained/Reviewed and Anes Risks/Benef Reviewed Patient Risk: Low Procedure Risk: Intermediate Anesthetic Plan Anesthetic Plan: GA and Agree w/ Assess. and Plan Disposition: Standard PACU
--- NOTE | 2025-08-19 08:40 | P.OP_ITS ---
Operative Note Operative Note Date of Service: 08/19/25 Narrative: Preoperative Diagnosis: Left C7 radiculopathy Procedure : C6-7 total disc arthropathy Informed Consent was obtained for this operation. I have explained the nature, purpose and benefits of the operation. I have discussed the risks and benefit of the operation including possible complications or adverse events with patient/family. Alternative(s) were discussed with the patient with their relative benefits and risks as well as the consequences of not accepting the operation were included in obtaining consent. Surgeon: ERIKA FRANCOIS MD, PHD Procedure Assisted By: Benigno Blue Description of Procedure: This patient is suffering from left-sided neck pain. An MRI shows a disc herniation C6-7 compressing the left C7 nerve root in the foramen. The patient was offered a total disc arthropathy The procedure complications were explained. The patient was consented. The patient was brought to the operating room and endotracheally intubated. The patient was put in supine position with slight extension of the neck. Prep and drape was done followed by timeout. A mid cervical incision was made followed by opening of the platysma. The prevertebral fascia was reached following the natural planes while the physician automobile mechanic assistant provided manual retraction. The prevertebral fascia was opened to expose the disc space. A spinal needle was placed in the disk space to confirm the correct level with xray. The longus colli muscles were released bilaterally and a self retaining retractor was inserted. Two [place] pins were placed in the C6 and C7 vertebral bodies parallel to the endplates and distraction was give over the interspace. The discectomy was completed toward the posterior annulus of the disc. The microscope was brought in. The remainder of the discectomy was completed. The posterior ligament was opened and resected to expose the underlying dura. Bilateral foraminotomies were done. A trial implant was inserted to determine the correct implant size is. Then an artificial disc of sentinel spine of 15 x 14 and 5 mm height was inserted under fluoroscopic guidance. Final x-rays in AP and lateral projection showed a satisfactory position of the implant. The physician automobile mechanic assistant took over. The [place] pin was removed. Hemostasis was done. He closed the incision in 2 layers with a 3-0 Vicryl. Steri-Strips used to approximate incision. An OpSite with Tegaderm was used to cover the incision. All sponge and needle counts were correct. Patient was extubated and transported in stable is to recovery room. Anesthesia: General Estimated Blood Loss (ml): 10 Duration of Surgery: 60 minutes Postoperative Plan: Discharge home Complications: None
--- NOTE | 2025-08-19 08:44 | PM.DS ---
DS: Providers Provider Date of Service: 08/19/25 Date of discharge: 08/19/25 Primary care physician: FREDRICK Forbes DS: Summary Time Attestation Discharge Coordination Time (in mins): 12 Quality: Safe Use of Opioids Does Pt have an Active Cancer Diagnosis on the Problem List?: No Quality: Stroke Does the patient have a stroke diagnosis?: No Physical Exam Vital Signs: Vital Signs: Last Vital Signs Temp 98.4 F 08/19/25 06:19 Pulse 73 08/19/25 06:19 Resp 16 08/19/25 06:19 BP 126/78 08/19/25 06:19 Pulse Ox 100 08/19/25 06:19 O2 Del Method Room Air 08/19/25 06:19 BMI result Body Mass Index 22.7 DS: Data Data Completed and Pending Labs on day of discharge: Laboratory Results - last 24 hr 08/19/25 06:05 Urine Test NEGATIVE Discharge Plan Discharge Patient Disposition: Home, Self-Care Referrals: Komal Peterson FNP [Primary Care Provider, Family Practice] - 1 Week Discharge Medications: New oxycodone 5 mg tablet 5 mg PO Q6H PRN (Reason: pain) Qty: 20 0RF Rx Instructions: Partial Fill upon patient request. Continued cyclobenzaprine 5 mg tablet 5 mg PO TID PRN (Reason: Muscle Spasm) Held ibuprofen 200 mg Tablet 400 mg PO Q6H PRN (Reason: Pain) Hold Instructions: Resume on 08/20/25. Discharge Orders: Discharge Order (Routine); Ordered 08/19/25 Ordered By: Benigno Blue Diet: Advance to usual diet Activity on Discharge: As tolerated Activity Restrictions/Additional Instructions: After your spinal surgery we ask you to observe the following restrictions/guidelines: Activity: It is normal to feel some discomfort as you increase your activity, but that will improve with time. We ask you avoid heavy lifting or acitivities that cause pain. As a general rule, 8lbs is a safe limit for lifting right after surgery. Walk as much as you feel comfortable but not to exhaustion. You will feel extra tired the first few days after surgery. Stay well hydrated. It is OK to walk up and down stairs You may return to driving when you are off narcotics (such as vicodin, oxycodone, dilaudid, etc), and you are back to normal functional capacity. If you have any concerns please check with office before driving. Return to work is specific to each patient and each surgery, so please speak with your doctor/PA at first follow up. Please bring paperwork such as FMLA at that time if you need it filled out. Medications: We recommend you take 1,000mg Tylenol every 8 hours for the first few weeks after surgery, if you do not have any liver issues and can tolerate this medication. Do not exceed 4,000mg daily. We will give you a short supply of narcotics after surgery (usually one weeks worth). If you need more please call the office but do not use more than prescribed. You will need to give our office 48 hours notice if you need narcotics refilled and we do not fill narcotics on weekends or evenings. If you are on a narcotic, it is a good idea to take a stool softener such as colace or senna to avoid constipation If you take blood thinner such as aspirin, Plavix, Coumadin, Effient, Eliquis etc for conditions such as Afib, DVT, Pulmonary embolus, coronary disease, stents etc please speak with your surgeon about specific details as to when you can resume these medications. You can resume NSAIDs on post op day 1 (eg: Motrin, Naproxen, etc). Follow up: Please call the office, , after surgery to arrange a 3 week follow up for wound check. Wound Care: You may remove your dressing on the first day after surgery. ?You may ?leave open to air. Please do not remove the steri strips underneath. they will fall off on their own in one week. IT IS NORMAL FOR THE WOUND TO OOZE OR BE BLOODY FOR A FEW DAYS AFTER SURGERY. ?IF THIS HAPPENS JUST PLACE NEW DRESSING OVER IT TO AVOID STAINING CLOTHES. You may shower on post op day # 1 We ask that you do not let the water soak the wound. If it does get wet, just towel dry lightly. Please do not scrub your incision or place any type of chemical/ointment on the wound. No tub baths, pools or jacuzzis for one month. If you have any leaking or redness from your wound, or fevers, please call the office. Print Language: [place] Islander
== END 2025-08-19 10:24 | disposition home or self-care (01) ==
PROVIDERS: Nurse Practitioner; PCP Nurse Practitioner Family; Visit Provider Neurological Surgery
PROC: (CPT 22856; principal; 2025-08-19 07:30)
DX: M50.123 Cervical disc disorder at C6-C7 level with radiculopathy (principal); Z79.1 Long term (current) use of non-steroidal anti-inflammatories (NSAID); Z79.899 Other long term (current) drug therapy
CPT/HCPCS: 22856; 81025; C1776; J0131; J0690; J1100; J1630; J2003; J2250; J2405; J2704; J3010

== ENCOUNTER → 2025-08-19 06:01 | Outpatient (BNV) | payer OTHER, SELFPAY | PROVIDERS: PCP Nurse Practitioner Family; Visit Provider Neurological Surgery | DX: M54.12 Radiculopathy, cervical region (principal) | CPT/HCPCS: 22856; 99499 ==

== ENCOUNTER 2025-09-09 13:26 | Outpatient (AMB) | payer OTHER, SELFPAY ==
--- NOTE | 2025-09-09 13:30 | HO.SPINEOV ---
Intake Visit Reasons: 1st post op Intake Note: Ms. Santizo is here today for her 1st post op. Personal Financial Representative Required: No Allergies No Known Allergies Allergy (Verified 08/19/25 06:10) Assessment & Plan Assessment & Plan (1) Cervical radiculopathy: Code(s): M54.12 - Radiculopathy, cervical region Category: Medical Plan Procedure: C6-7 total disc arthroplasty Robles is a 35-year-old female who comes in today for 1st postoperative visit after having a C6-7 total disc arthroplasty completed by Dr. Ferrell. She reports good resolution of her preoperative pain since her surgery. She still has mild cramping in her right shoulder, but states that otherwise she is doing very well. She is not taking any pain medication, and reports only needing a couple of days of oxycodone until she is off of it completely and back to using the very occasional Advil. She has been completing her activities of daily living without issue, and is back to stretching and exercise. She did ask if she is able to go to physical therapy, which I encouraged her to hold off on until we see her again for a 2nd postoperative visit. She asked several questions regarding the postoperative healing course, all of which I answered to the best of my ability. No new neurological deficits. The patient ambulates well and rises from a seated position without difficulty. Her anterior incision site is closed and well healing with no signs of drainage. I would like to follow up with the patient again in 6 weeks for his 2nd postoperative visit. At that time we will get a set of x-rays. Benigno Ferrell MD,PhD [facility] Orders: Orders XR cervical spine 4V Today M54.12 - Radiculopathy, cervical region Coding Level of Care Code Global (54019) Diagnoses Cervical radiculopathy M54.12
--- OUTSIDE RECORDS SUMMARY | 2025-09-09 19:05 | XMS_ITS | Encounter Summary ---
Author Organization [facility] Address [address] [place] [address] Phone Care Team Providers Care Tower Hand Name Role Phone Komal Peterson CNP Primary Care Provid er Encounter Details Date Type Department Care Team (Late st Contact Info) Description 05/28/2025 Procedure Pass [facility], [address] [id number] Social History Tobacco Use Types Packs/Day Years [...] high school, GED, job training, learning the Belgian language, technical skills, or developing parenting skills)? [...] EDT Office Visit [facility] [address] [place] [address] [place] [address] Komal Peterson, MARIO [address] [facility], 2nd Floor [place] [phone] [email or web address] documented as of this encounter Visit Diagnoses Not on filedocumented in this encounter Additional Health Concerns Assessment Noted Time PHQ-2 Depression Total Score: 1 02/28/20 25 5:26 PM EDT documented as of this encounter Care Teams Tower Hand Relationship Specialty Start Date End Date Komal Peterson CNP [address] [place] [address], [address]nd Floor [place] [phone] [email or web address] PCP - General Family Medicine 02/18/24 documented as of this encounter Additional Source Comments The information contained in this document represents components of the legal health record. It is not the complete legal health record.[facility]
--- OUTSIDE RECORDS SUMMARY | 2025-09-09 19:05 | XMS_ITS | Encounter Summary ---
Author Organization [email or web address] Address [address] [facility] 7t [place] [address] Care Team Providers Care Polisher And Buffer Name Role Phone Provider, Not In System [...] on filedocumented in this encounter Care Teams Polisher And Buffer Relationship Specialty Start Date End Date Provider, Not In System PCP - General Family Medicine 02/29/24 documented as of this encounter
--- OUTSIDE RECORDS SUMMARY | 2025-09-09 19:05 | XMS_ITS | Encounter Summary ---
Author Organization [employer] Address [address] [facility] 7t [place] [address] Care Team Providers Care Ladies Locker Room Attendant Name Role Phone Provider, Not In System [...] on filedocumented in this encounter Care Teams Ladies Locker Room Attendant Relationship Specialty Start Date End Date Provider, Not In System PCP - General Family Medicine 02/29/24 documented as of this encounter
--- OUTSIDE RECORDS SUMMARY | 2025-09-09 19:05 | XMS_ITS | Clinical Summary ---
Author Organization [employer] Address [address] [facility] 7t [place] [address] Care Team Providers Care Product Development Engineer Name Role Phone Provider, Not In System [...] RESULT 4TH GEN HIV AB-AG NEGATIVE (NEG) [facility] 06/28/2020 3:02 PM EDT us Historical Provider HISTORICAL/NON ORDERABLE LABS Final Result [facility] [address] from Last 3 Months or Most Recently Relevant to Health Maintenance Insurance [facility] MEDICAID STAND ADULT DENTAL - HSN FULL (MEDICAID) Care Teams Product Development Engineer Relationship Specialty Start Date End Date Provider, Not In System PCP - General Family Medicine 02/29/24
--- OUTSIDE RECORDS SUMMARY | 2025-09-09 19:05 | XMS_ITS | Clinical Summary ---
Author Organization [facility] Address [address] [employer] [facility] [address] [place] [address] Phone Care Team Providers Care Settlement Technician Name Role Phone Komal Peterson CNP [...] flow, a break, and then resumption of production cloth cutter flow. - Some irregularity is to be [...] if she needs a referral for a hydrology technician/special effects designer. Bilateral shoulder pain 09/02/2022 Overview (02/18/2024): Started [...] Description 07/24/2025 1:30 PM EDT Office Visit [facility] [address] [place] [address] [place] [address] Komal Peterson CNP Preoperative cardiovascular examination (Primary Dx); Degenerative disc disease, cervical; Cervical radiculopathy; Encounter for immunization 06/16/2025 6:55 AM EDT - 06/16/2025 11:59 PM EDT Hospital Encounter [address] [address] Komal Peterson CNP Discharge Disposition: Home or Self Care 05/28/2025 Procedure Pass [address] [address] from Last 3 Months Immunizations Immunization Administration [...] high school, GED, job training, learning the Malay language, technical skills, or developing parenting skills)? [...] EDT Office Visit [facility] [address] [place] [address] [place] [address] Komal Peterson, MARIO [address] [facility], 2nd Floor [place] [phone] [email or web address] Health Maintenance Due Date Last Done Comments COVID-19 VACCINE (2024-2 6 season) 2025 DEPRESSION SCREENING 02/27/2026 02/27/2025 PAP [...] clinician's provided indication for this examination in [facility]: * Cervical radiculopathy, no red flags; [...] clinician's provided indication for this examination in [facility]: *Cervical radiculopathy, no red flags; * [...] on theleft C7 nerve root. Komal Peterson CHEMIST [employer] IMG MR XSPECIALTY Fi nal Result * PAP SMEAR FOR RESULT ENTRY ONLY (01/30/2025 9:42 AM EDT) Pap smear NILM and HPV neg EXTERNAL NON-INTERFACE D REF LAB 01/30/2025 9:42 AM EDT Result [facility] Historical Provider MD HEALTH MAINTENANCE Edited Result - Final EXTERNAL NON-INTERFACED REF LAB * OUTSIDE HIV TEST (05/06/2021 10:10 AM EDT) HIV - External Neg Result [facility] Historical Provider MD LAB BLOOD ORDERABLES Marycarmen l Result * Outside Hepatitis C Virus Screening (06/28/2020 3:01 PM EDT) Hepatitis C Screening - External Neg Historical Provider MD LAB BLOOD ORDERABLES Marycarmen l Result from Last 3 Months or Most Recently Relevant to Health Maintenance [facility] [address] [place] [address] [employer] [address] [place] [address] [place] [address] [employer] [facility] [employer] DIRECT [facility] [employer] DIRECT Care Teams Settlement Technician Relationship Specialty Start Date End Date Komal Peterson, MARIO [address] [place] [address], 2nd [place] [address] [email or web address] PCP - General Family Medicine 02/18/24 Additional Source Comments The information contained in this document represents components of the legal health record. It is not the complete legal health record.[facility]
--- OUTSIDE RECORDS SUMMARY | 2025-09-09 19:05 | XMS_ITS | Clinical Summary ---
Author Organization [address] [facility] Address [address] [place] [address] Phone Care Team Providers Care Commercial Pest Control Technician Name Role Phone Komal Peterson Barbra COMMUNICATIONS INSTRUCTOR Primary Care Provide r Allergies No known active allergies Medications tretinoin (RETIN-A) 0.1 % cream Apply topically daily. 4 Active cyclobenzaprine (FLEXERIL) 5 mg tablet Take 1 tablet (5 mg total) by mouth 3 times daily as needed. 5 Active cholecalciferol (VITAMIN D-3) 50 mcg (2,000 unit) tablet Take 1 tablet (2,000 Units total) by mouth daily. Active Active Problems Problem Noted Date Diagnosed Date Cervical spondylosis with radiculopathy 08/14/20 25 Assessment & Plan (08/14/2025 11:06 AM EDT): I reviewed the MRI findings in detail with Ms. Santizo using spine models to describe the proposed treatment option of discectomy and artificial disc replacement. I agree that she is symptomatic from the left C7 foraminal stenosis due to a disc osteophyte. It is interesting that she gets spasms on both sides but the predominant finding is left periscapular and left arm which fits with the C7 distribution. This has been affecting her for several years, she has had extensive treatment with physical therapy, acupuncture and variations on massage. She is a good candidate for a C6-7 discectomy with ADR and should do well after surgery. We discussed the details, risks, benefits and anticipated postoperative course with symptoms of dysphagia and posterior cervical spasm that typically fluctuate over the first 2 to 3 weeks. All questions were answered and she will proceed with her surgery as scheduled with Dr. Ferrell on 08/20/2025. Encounters Date Type Department Care Team Description 08/14/2025 10:00 AM EDT Consult Neurosurgery [facility] [address] [facility] [address] [place] [address] Fatoumata Galvez MD Cervical spondylosis with radiculopathy (Primary Dx) from Last 3 Months Surgical History Surgery Date Site/Laterality Comments WISDOM TOOTH EXTRACTION Social History Tobacco Use Types Packs/Day Years Used Date Smoking Tobacco: Never Smokeless Tobacco: Never Tobacco Cessation:Counseling Given: Not Answered Comments Unknown Sex and Gender Information Value Date Recorded Sex Assigned at Not on file Legal Sex Female 4:16 PM EDT Gender Identity Not on file Sexual Orientation Not on file Obstetrics History Last Filed Vital Signs Vital Sign Reading Time Taken Comments Blood Pressure - - Pulse - - Temperature - - Respiratory Rate - - Oxygen Saturation - - Inhaled Oxygen Concentration - - Weight 68 kg (150 lb) 08/14/2025 10:20 AM EDT Height 172.7 cm (5' 8 ) 08/14/2025 10:20 AM EDT Body Mass Index 22.81 08/14/2025 10:20 AM EDT Plan of Treatment Health Maintenance [...] 10/05/1992, 04/1992, 1991 IPV Vaccines Completed 08/21/1995, 06/1993, 1991, Additional history exists Hepatitis B [...] patient's age to complete this topic Insurance [facility] [employer] Care Teams Commercial Pest Control Technician Relationship Specialty Start Date End Date Komal Peterson NP [address] [place] [address] 2nd [place] [address] PCP - General Family Medicine 07/24/25
== END 2025-09-09 13:44 | disposition home or self-care (01) ==
LOC: HO.HNS 13:27
PROVIDERS: PCP Nurse Practitioner Family; Visit Provider Physician Assistant
DX: M54.12 Radiculopathy, cervical region (principal)
CPT/HCPCS: 99024

== ENCOUNTER 2025-09-09 13:26 | Outpatient (REF) | payer OTHER, SELFPAY | END 2025-09-09 13:27 | disposition home or self-care (01) | LOC: HO.HOSX 13:26 | PROVIDERS: PCP Nurse Practitioner Family; Visit Provider Physician Assistant | DX: Z47.89 Encounter for other orthopedic aftercare (principal); M54.12 Radiculopathy, cervical region; M25.511 Pain in right shoulder; Z98.890 Other specified postprocedural states | CPT/HCPCS: 99212 ==

== ENCOUNTER 2025-10-23 14:39 | Outpatient (AMB) | payer OTHER, SELFPAY ==
--- NOTE | 2025-10-23 14:44 | HO.SPINEOV ---
Intake Visit Reasons: 2nd post op with Xrays Intake Note: Ms. Santizo is here today for her 2nd post op with x-rays. Sports Nutritionist Required: No Allergies No Known Allergies Allergy (Verified 08/19/25 06:10) Assessment & Plan Assessment & Plan (1) Cervical radiculopathy: Code(s): M54.12 - Radiculopathy, cervical region Category: Medical Plan Ms Santizo is a little over 2 months out from her artificial disc. She is doing amazing. She still gets a little bit of stiffness from time to time in the back of her neck but otherwise the arm pain is gone and she is back to doing most activities. Her x-rays today look great. Her wound is healed up beautifully. She has no restrictions from our standpoint and can follow up on an as-needed basis. Logan Ferrell MD, PhD [facility] Orders: Orders XR cervical spine 4V Today M54.12 - Radiculopathy, cervical region Coding Level of Care Code Global (02508) Diagnoses Cervical radiculopathy M54.12
--- OUTSIDE RECORDS SUMMARY | 2025-10-23 18:46 | XMS_ITS | Encounter Summary ---
Author Organization [facility] Address [address] [place] [phone] Phone Care Team Providers Care All Source Intelligence Analyst Name Role Phone Komal Peterson CNP Primary Care Provid er Encounter Details Date Type Department Care Team (Late st Contact Info) Description 05/28/2025 Procedure Pass [facility], [address] [phone] Social History Tobacco Use Types Packs/Day Years [...] high school, GED, job training, learning the Afghan language, technical skills, or developing parenting skills)? [...] EDT Office Visit [facility] [address] [place] [address] [place] [address] Komal Peterson, MARIO [address] [facility], 2nd Floor [place] [phone] [email or web address] documented as of this encounter Visit Diagnoses Not on filedocumented in this encounter Additional Health Concerns Assessment Noted Time PHQ-2 Depression Total Score: 1 02/28/20 25 5:26 PM EDT documented as of this encounter Care Teams All Source Intelligence Analyst Relationship Specialty Start Date End Date Komal Peterson CNP [address] [place] [address], [address] Floor [place] [phone] [email or web address] PCP - General Family Medicine 02/18/24 documented as of this encounter Additional Source Comments The information contained in this document represents components of the legal health record. It is not the complete legal health record.[facility]
--- OUTSIDE RECORDS SUMMARY | 2025-10-23 18:46 | XMS_ITS | Encounter Summary ---
Author Organization [employer] Address [address] [facility] 7t [place] [address] Care Team Providers Care Senior Product Integrity Engineer Name Role Phone Provider, Not In [...] on filedocumented in this encounter Care Teams Senior Product Integrity Engineer Relationship Specialty Start Date End Date Provider, Not In System PCP - General Family Medicine 02/29/24 documented as of this encounter
--- OUTSIDE RECORDS SUMMARY | 2025-10-23 18:46 | XMS_ITS | Clinical Summary ---
Author Organization [facility] Address [address] [facility] [address] [place] [phone] Phone Care Team Providers Care Car Inspection And Repair Manager Name Role Phone Komal Peterson CNP Primary [...] Dysmenorrhea 07/24/2025 Degenerative disc disease, cervical 04/10/2025 Assessment & Plan (10/23/2025 8:47 AM EST): A discectomy has been proposed to manage her radicular symptoms. - A second opinion is recommended before proceeding with surgery. Options for neurosurgeons include Dr. Galvez at [facility] or another provider in her office, as well as specialists in [place] or [place]. The patient will contact these providers to see who can schedule her soonest. If no one can see her before the end of 08/2025, she may proceed with Dr. Chapin's office. Ganglion cyst of left foot 03/06/2025 Assessment [...] spasms of neck 03/06/2025 Assessment & Plan (10/23/2025 8:49 AM EST): Has access to cyclobenzaprine PRN, continue. Assessment & Plan (03/06/2025 6:11 PM EDT): [...] flow, a break, and then resumption of vacuum caster flow. - Some irregularity is to be [...] seasonally. Cervical radiculopathy 02/18/2024 Assessment & Plan (10/23/2025 8:46 AM EST): The patient's symptoms align with the MRI findings of a bulged C6-C7 disc impinging on a nerve, causing numbness and tingling in the left side. Assessment & Plan (02/18/2024 9:38 AM EDT): [...] if she needs a referral for a carpet or rug layer helper/paste thinner. Bilateral shoulder pain 09/02/2022 Overview (02/18/2024): Started [...] Description 07/24/2025 1:30 PM EDT Office Visit [facility] [address] [place] [address] [place] [address] Komal Peterson, MARIO Cervical radiculopathy (Primary Dx); Degenerative disc disease, cervical; Muscle spasms of neck; Preoperative cardiovascular examination; Encounter for immunization; Healthcare maintenance from Last 3 Months Immunizations Immunization Administration [...] high school, GED, job training, learning the Nepali language, technical skills, or developing parenting skills)? [...] your housing situation today? I have tony sing 02/27/2025 How many times have you move [...] 7 ) 06/11/2025 3:54 PM EDT 3 / Body Mass Index 23.56 06/11/2025 3:54 PM EDT Plan of Treatment Upcoming Encounters Date Type Department Care Team (Late st Contact Info) Description 03/12/2026 8:00 AM EDT Office Visit [facility] [address] [place], [place] [address] Komal Peterson, MARIO [address] [facility] [place] [address] Health Maintenance Due Date Last Done Comments [...] Procedure Name Priority Date/Time Associated Diagnosis Comments PAP SMEAR FOR RESULT ENTRY ONLY Routine 01/30/2025 9:42 AM EDT OUTSIDE HIV Routine 05/06/2021 10:10 AM EDT OUTSIDE HEPATITIS C VIRUS SCREENING Routine 06/28/2020 3:01 PM EDT from Last 3 Months or Most Recently Relevant to Health Maintenance Results * PAP SMEAR FOR RESULT ENTRY ONLY (01/30/2025 9:42 AM EDT) HM Pap smear NILM and HPV neg EXTERNAL NON-INTERFACE D REF LAB 01/30/2025 9:42 AM EDT Historical Provider HEALTH MAINTENANCE Edited Result - Final EXTERNAL NON-INTERFACED REF LAB * OUTSIDE HIV TEST (05/06/2021 10:10 AM EDT) HIV - External Neg Historical Provider LAB BLOOD ORDERABLES Marycarmen l Result * Outside Hepatitis C Virus Screening (06/28/2020 3:01 PM EDT) Hepatitis C Screening - External Neg Historical Provider LAB BLOOD ORDERABLES Marycarmen l Result from Last 3 Months or Most Recently Relevant to Health Maintenance [place] [address] [place] [address] [employer] [facility] [employer] [place] [address] [place] [address] [employer] [facility] DIRECT [facility] DIRECT Care Teams Car Inspection And Repair Manager Relationship Specialty Start Date End Date Komal Peterson CNP [address] [place] [address], [address] [place] [address] [email or web address] PCP - General Family Medicine 02/18/24 Additional Source Comments The information contained in this document represents components of the legal health record. It is not the complete legal health record.[facility]
--- OUTSIDE RECORDS SUMMARY | 2025-10-23 18:46 | XMS_ITS | Encounter Summary ---
Author Organization [employer] Address [address] [facility] [address] [place] [address] Care Team Providers Care Fiber Optics Technician Name Role Phone Provider, Not In System [...] on filedocumented in this encounter Care Teams Fiber Optics Technician Relationship Specialty Start Date End Date Provider, Not In System PCP - General Family Medicine 02/29/24 documented as of this encounter
--- OUTSIDE RECORDS SUMMARY | 2025-10-23 18:46 | XMS_ITS | Clinical Summary ---
Author Organization [employer] Address [address] [facility] 7[address] [place] [address] Care Team Providers Care Market Basket Maker Name Role Phone Provider, Not In System [...] RESULT 4TH GEN HIV AB-AG NEGATIVE (NEG) [facility] 06/28/2020 3:02 PM EDT us Historical Provider HISTORICAL/NON ORDERABLE LABS Final Result [facility] [address] from Last 3 Months or Most Recently Relevant to Health Maintenance Insurance [facility] MEDICAID STAND ADULT DENTAL - HSN FULL (MEDICAID) Care Teams Market Basket Maker Relationship Specialty Start Date End Date Provider, Not In System PCP - General Family Medicine 02/29/24
--- OUTSIDE RECORDS SUMMARY | 2025-10-23 18:46 | XMS_ITS | Clinical Summary ---
Author Organization [address] [facility] Address [address] [place] [address] Phone Care Team Providers Care Substation Superintendent Name Role Phone Komal Peterson Barbra SPECIAL EDUCATION INCLUSION TEACHER Primary Care Provide r Allergies No known [...] Description 08/14/2025 10:00 AM EDT Consult Neurosurgery [facility] [address] [facility] [address] [place] [address] Fatoumata Galvez MD Cervical spondylosis [...] patient's age to complete this topic Insurance [facility] [employer] PLANS Care Teams Substation Superintendent Relationship Specialty Start Date End Date Komal Peterson NP [address] [place] [address] 2[address] [place] [address] PCP - General Family Medicine 07/24/25
== END 2025-10-23 15:05 | disposition home or self-care (01) ==
LOC: HO.HNS 14:39
PROVIDERS: PCP Nurse Practitioner Family; Visit Provider Physician Assistant
DX: M54.12 Radiculopathy, cervical region (principal)
CPT/HCPCS: 99024

== ENCOUNTER 2025-10-23 14:39 | Outpatient (REF) | payer OTHER, SELFPAY ==
--- NOTE | ~2025-10-23 | XR_ITS ---
EXAMINATION: XR CERVICAL SPINE CLINICAL INFORMATION: M54.12 - Radiculopathy, cervical region COMPARISON: None available. TECHNIQUE: 4 view cervical spine FINDINGS: There is straightening/slight lower cervical spinal curvature. Bony sagittal alignment is maintained. Predens space is maintained. Postsurgical changes with intervertebral body hardware at C6-7. No evidence of acute fracture. Question mild C7-T1 disc space narrowing. Disc No suspicious bony lesions. No instability is identified on the flexion/extension views. Lung apices are clear. Prevertebral soft tissues within normal limits. XR/XR cervical spine 4V IMPRESSION: C5-6 postsurgical changes with intervertebral body metallic hardware. . No evidence of acute osseous findings. Electronically signed by: Santos Dunaway MD 10/23/2025 04:28 PM [employer] [facility]
== END 2025-10-23 14:40 | disposition home or self-care (01) ==
LOC: HO.HOSX 14:39
PROVIDERS: PCP Nurse Practitioner Family; Visit Provider Physician Assistant
DX: M54.12 Radiculopathy, cervical region (principal)
CPT/HCPCS: 72050; 99212

== ENCOUNTER → 2025-10-23 14:44 | Outpatient (BNV) | payer OTHER, SELFPAY | PROVIDERS: PCP Nurse Practitioner Family; Visit Provider Radiology Diagnostic Ultrasound | DX: M54.12 Radiculopathy, cervical region (principal) | CPT/HCPCS: 72050 ==